=== PATIENT | male | born 1950 | race Caucasian/White ===

== ENCOUNTER 2018-12-29 19:05 | Emergency (ER) | payer OTHER, SELFPAY ==
[2018-12-29 19:05] VITALS: BP 176/113; PULSE 72; RESP 18; TEMP 36.4; O2SAT 99
--- NOTE | 2018-12-29 19:15 | ED.GENADULT ---
HPI - General Adult General Chief complaint: Arrhythmia/Palpitations Stated complaint: states in AFIB, not getting better Time Seen by Provider: 12/29/18 19:15 Source: patient Mode of arrival: ambulatory Limitations: no limitations History of Present Illness HPI narrative: Patient is a 68-year-old male sent to the emergency department by his primary doctor for high blood pressure. Patient states that he recently saw a new primary provider. During his initial visit with that it was found that he was in atrial fibrillation. Was also noted that he was hypertensive. He was started on 5 mg of lisinopril. Approximately 10 days ago he had an echocardiogram. I do not have the results of this although he was told that he was in atrial fibrillation. He denies any chest pain or palpitations or lightheadedness or headache or vision changes. He was not started on any anticoagulation. Last Thursday his lisinopril was increased to 15 mg. He has been taking his blood pressure since then hand on general and has been in the 150s in 160s systolic. He called his primary doctor today who told him to come to the emergency department. He is an appointment scheduled for Cardiology next month. Related Data Home Medications Medication Instructions Recorded Confirmed aspirin 325 mg PO DAILY 12/29/18 12/29/18 hydrochlorothiazide 12/29/18 lisinopril 12/29/18 Previous Rx's Medication Instructions Recorded lisinopril 30 mg PO DAILY #60 tab 12/29/18 rivaroxaban 20 mg PO QPM #30 tab 12/29/18 Allergies Allergy/AdvReac Type Severity Reaction Status Date / Time No Known Drug Allergies Allergy Verified 12/29/18 19:31 Review of Systems Constitutional Denies fever(s) and Denies headache(s) ENT Ears, Nose, Mouth, and Throat: Denies headache(s) Cardiovascular Denies chest pain, Denies chest pain at rest, Denies chest pain with activity, Denies diaphoresis, Denies syncope, Denies rapid heart rate, Denies edema, Denies irregular heart rhythm, Denies lightheadedness, Denies palpitations and Denies dyspnea Respiratory Denies cough and Denies dyspnea Gastrointestinal Gastrointestinal: Denies abdominal pain Genitourinary Denies dysuria Musculoskeletal Denies abnormal gait, Denies myalgias and Denies arthralgias Integumentary/Breasts Denies new lesions and Denies rash Neurologic Denies abnormal gait, Denies behavioral changes, Denies syncope and Denies headache(s) Psychiatric Denies behavioral changes Endocrine Denies palpitations Hematologic/Lymphatic Denies easy bleeding and Denies easy bruising Allergic/Immunologic Denies urticaria [facility] Medical History Atrial fibrillation (Acute) Hypertension (Acute) Social History Smoking Status: Never smoker Social History Smoking Status: Never smoker Exam Initial Vital Signs Initial Vital Signs: Vital Signs Temperature 97.6 F 12/29/18 19:05 Pulse Rate 72 12/29/18 19:05 Respiratory Rate 18 12/29/18 19:05 Blood Pressure 176/113 H 12/29/18 19:05 Pulse Oximetry 99 12/29/18 19:05 Const General: cooperative, comfortable, well developed, well groomed and No acute distress Orientation: alert, awake and oriented x3 HENMT Head: normal to inspection and normocephalic Resp Effort & Inspection: normal respiratory effort Auscultation: clear to auscultation bilaterally Cardio Rate: regular rate Rhythm: abnormal rhythm Pulses: radial pulses present GI Inspection: non-distended Palpation: soft, No firm and No tender Skin Lesions: no lesions Rashes: no rashes Neuro General: alert, awake and oriented x3 Cognition: normal cognition Speech: speech normal Motor: muscle tone normal throughout Sensory Exam: no sensory deficits noted Extrem General: normal to inspection and capillary refill normal Psych Appearance: grossly normal and well kempt Course Orders Ordered: ED Orders 12/29/18 19:17 XR chest 1V Stat EKG-12 Lead Stat 12/29/18 19:45 Complete Blood Count AUTO DIFF Stat Comprehensive Metabolic Panel Stat Lipase Stat Partial Thromboplastin Time Stat Prothrombin Time INR Stat Troponin & CK Cardiac Panel Stat Discontinued Medications Rivaroxaban (Xarelto) 20 mg PO NOW ONE Stop: 12/29/18 20:38 Last Admin: 12/29/18 20:41 Dose: 20 mg Vital Signs - 8 hr 12/29/18 19:05 12/29/18 19:43 12/29/18 20:33 Temperature 97.6 F Pulse Rate 72 93 H 82 Respiratory Rate 18 21 20 Blood Pressure 176/113 H Blood Pressure [Right Arm] 180/100 H 161/108 H Pulse Oximetry 99 97 98 12/29/18 20:57 Temperature Pulse Rate 79 Respiratory Rate 19 Blood Pressure 162/110 H Blood Pressure [Right Arm] Pulse Oximetry 98 Medical Decision Making Lab Data Lab results reviewed: Yes I reviewed the patient's lab results. Result diagrams: 12/29/18 19:45 12/29/18 19:45 Lab Results 12/29/18 12/29/18 12/29/18 Range/Units 19:45 19:45 19:45 WBC 8.1 (4.5-11.0) X10^3/uL RBC 5.00 (4.5-5.9) X10^6/uL Hgb 15.0 (13.5-17.5) g/dL Hct 43.5 (41-53) % MCV 87.0 (80-100) fL MCH 30.0 (26-34) PG MCHC 34.4 (30-36) % RDW 13.4 (11.6-14.8) % Plt Count 284 (150-400) X10^3/uL Neut % (Auto) 66.2 (50-75) % Lymph % (Auto) 22.2 L (25-40) % Burke % (Auto) 7.9 (3-14) % Eos % (Auto) 3.2 (2-4) % Baso % (Auto) 0.5 (0-2) % Neut # (Auto) 5400 (4910-4634) /uL Lymph # (Auto) 1800 (3238-8611) /uL Burke # (Auto) 600 (0-900) /uL Eos # (Auto) 300 (0-450) /uL Baso # (Auto) 0 (0-100) /uL PT 13.7 H (10.1-12.7) SECONDS INR 1.2 (0.9-1.3) APTT 37 H (26.4-36.2) SECONDS Sodium 139 (137-145) mmol/L Potassium 3.7 (3.4-5.1) mmol/L Chloride 100 (98-107) mmol/L Carbon Dioxide 26 (22-32) mmol/L BUN 21 H (9-20) mg/dL Creatinine 1.00 (0.66-1.25) mg/dL Estimated GFR > 60.0 (>60) mL/min BUN/Creatinine Ratio 21.0 (6-22) Glucose 264 H (80-110) mg/dL Calcium 9.4 (8.4-10.2) mg/dL Total Bilirubin 0.6 (0.2-1.3) mg/dL AST 56 (17-59) IU/L ALT 47 (21-72) IU/L Alkaline Phosphatase 49 (38-126) U/L Total Creatine Kinase 110 (55-170) U/L CK-MB (CK-2) 2.82 H (<2.37) ng/mL CK-MB (CK-2) Rel Index 2.6 (1.5-5.0) % Troponin I < 0.012 (0.01-0.034) ng/mL Total Protein 7.2 (6.3-8.2) g/dL Albumin 4.1 (3.5-5.0) g/dL Globulin 3.1 (1.7-4.1) g/dL Albumin/Globulin Ratio 1.3 (1.0-2.8) Lipase 152 (23-300) U/L Imaging Data Chest x-ray: Radiologist's impression: [address] [address] XRay Report Signed Patient: Nitza Olsen BMR#: [id number] : 2Acct:[id number] Age/Sex: 68 / MDate of Service: 12/29/18 Loc: ED Accession Number: [id number] Procedure: XR chest 1V Ordering Provider: Harry Kauffman D.O. PROCEDURE: XR CHEST 1V INDICATIONS: chest pain TECHNIQUE: One view of the chest was acquired. COMPARISON: None. FINDINGS: Surgical changes and devices: None. Lungs and pleura: Retrocardiac opacity. No pleural effusions or pneumothorax. Mediastinum: Mediastinal contours appear normal. Heart size is normal. Bones and chest wall: No suspicious bony lesions. Overlying soft tissues appear unremarkable. IMPRESSION: Retrocardiac opacity suggestive of aspiration/atelectasis versus pneumonia. Recommend followup after treatment to document resolution and exclude underlying pulmonary nodule. Dictated by: Jeremías Lyman M.D. on 12/29/2018 at 20:07 Approved by: Jeremías Lyman M.D. on 12/29/2018 at 20:08 ECG Data Attestation: I personally reviewed and interpreted this ECG as follows: Prior ECG tracings: not available for review Interpretation: Atrial fibrillation Ventricular rate is 76 Normal axis Normal QRS Normal QTC Nonspecific ST T wave changes MDM Narrative Medical decision making narrative: Patient is hypertensive here in the emergency department however has no signs of end-organ dysfunction from this. He is asymptomatic. Low suspicion for ACS. Low suspicion for PE or TAD or ICH. He is in AFib and is rate controlled. He does have a low ABCD2 score however I suspect that he has been in atrial fibrillation at least for the past 10 days if not longer. He does not meet criteria for cardioversion here in the emergency department. Does not meet criteria to be admitted since his rate is controlled. I do suspect that there is a high possibility that he will need cardioversion in the future. Since he does not have a cardiology appointment for the next several weeks and because of the high likelihood of a recommendation for cardioversion will start him on anticoagulation today. He was given his 1st dose here in the emergency department. He is hypertensive and has been for the past week despite the increase in his lisinopril. We will increase his lisinopril more. Informed him that he needed to continue to take his blood pressure at home and to take those numbers to his primary doctor to discuss further workup and treatment of this. We discussed return precautions and follow-up instructions. Informed him that he should talk with his primary doctor about the x-ray today. Patient expressed understanding and agreement with plan. Discharge Plan Departure Patient Disposition: Home Clinical Impression: Atrial fibrillation Qualifiers: Atrial fibrillation type: unspecified Qualified Code(s): I48.91 - Unspecified atrial fibrillation Hypertension Qualifiers: Hypertension type: unspecified Qualified Code(s): I10 - Essential (primary) hypertension Discharge Date/Time: 12/29/18 20:59 Interventions: ED Discharge Assessment Last Done: 12/29/18 20:57 Instructions: Treatments for High Blood Pressure: More Than Just Taking a Pill, DI for Atrial Fibrillation Activity Restrictions/Additional Instructions: I recommend that you start taking the anti coagulant for the atrial fibrillation like we discussed. I do recommend that you talk with your primary doctor to discuss the indications for a Holter monitor prior to your cardiology visit. I also recommend that you increase your lisinopril to 30 mg a day. Continue to take your blood pressure at home. Return to the emergency department for any new or worsening symptoms Prescriptions: New lisinopril 20 mg tablet 30 mg PO DAILY Qty: 60 RF: 0 rivaroxaban 20 mg tablet 20 mg PO QPM Qty: 30 RF: 0 No Action hydrochlorothiazide RF: 0 lisinopril RF: 0 aspirin 325 mg Tablet 325 mg PO DAILY RF: 0
--- NOTE | 2018-12-29 19:42 | PC.NURSE ---
seen at doctor 1.5 weeks ago. Told he was in Afib and had hypertension. Pt states today he was monitoring at home and his and doctor made him come in. States he has no symptoms associated with this but does not have a patient registration clerk appt until 01/19.
[2018-12-29 19:43] VITALS: BP 180/100; PULSE 93; RESP 21; O2SAT 97
[2018-12-29 19:54] LABS: Add Manual Diff / Slide Review NO; Basophils Absolute Auto 0 /uL (0-100); Basophils Percent Auto 0.5 % (0-2); Eosinophils Absolute Auto 300 /uL (0-450); Eosinophils Percent Auto 3.2 % (2-4); Hematocrit 43.5 % (41-53); Lymphocytes Absolute Auto 1800 /uL (1100-4500); Lymphocytes Percent Auto 22.2 % (25-40); Mean Corpuscular HGB Conc 34.4 % (30-36); Monocytes Absolute Auto 600 /uL (0-900); Monocytes Percent Auto 7.9 % (3-14); Neutrophils Absolute Auto 5400 /uL (1500-7000); Neutrophils Percent Auto 66.2 % (50-75); Platelet Count 284 X10^3/uL (150-400); Red Cell Distribution Width 13.4 % (11.6-14.8); White Blood Cell Count 8.1 X10^3/uL (4.5-11.0)
[2018-12-29 20:00] LABS: INR 1.2 (0.9-1.3); Prothrombin Time 13.7 SECONDS (10.1-12.7)
[2018-12-29 20:03] LABS: PTT Partial Thromboplastin Tim 37 SECONDS (26.4-36.2)
[2018-12-29 20:15] LABS: Alanine Aminotransferase 47 IU/L (21-72); Albumin 4.1 g/dL (3.5-5.0); Albumin Globulin Ratio 1.3 (1.0-2.8); Alkaline Phosphatase 49 U/L (38-126); Aspartate Aminotransferase 56 IU/L (17-59); Bilirubin Total 0.6 mg/dL (0.2-1.3); Blood Urea Nitrogen 21 mg/dL (9-20); Calcium 9.4 mg/dL (8.4-10.2); Carbon Dioxide 26 mmol/L (22-32); Chloride 100 mmol/L (98-107); Creatine Kinase 110 U/L (55-170); Estimated Glomerular Filt Rate > 60.0 mL/min (>60); Globulin 3.1 g/dL (1.7-4.1); Glucose 264 mg/dL (80-110); HEMOLYSIS 21 (0-50); Lipase 152 U/L (23-300); Potassium 3.7 mmol/L (3.4-5.1); Sodium 139 mmol/L (137-145); Total Protein 7.2 g/dL (6.3-8.2)
[2018-12-29 20:27] LABS: Troponin I < 0.012 ng/mL (0.01-0.034)
[2018-12-29 20:30] LABS: CKMB % Relative Index 2.6 % (1.5-5.0); Creatine Kinase MB 2.82 ng/mL (<2.37)
[2018-12-29 20:33] VITALS: BP 161/108; PULSE 82; RESP 20; O2SAT 98
[2018-12-29] MEDS: RIVAROXABAN 10 MG TABLET 20 MG PO (20:41)
[2018-12-29 20:57] VITALS: BP 162/110; PULSE 79; RESP 19; O2SAT 98
== END 2018-12-29 20:59 | disposition home or self-care (01) ==
PROVIDERS: Emergency Provider Emergency Medicine
DX: I48.91 Unspecified atrial fibrillation (principal); I10 Essential (primary) hypertension
CPT/HCPCS: 36415; 71045; 80053; 82550; 82553; 83690; 84484; 85025; 85610; 85730; 93005; 99283; 99285

== ENCOUNTER 2024-10-13 14:57 | Emergency (ER) | payer OTHER, SELFPAY ==
[2024-10-13 15:13] VITALS: BP 179/119; PULSE 71; RESP 16; TEMP 36.4; O2SAT 96; BMI 32.8
[2024-10-13 15:53] LABS: Add Manual Diff / Slide Review NO; Alanine Aminotransferase 33 IU/L (<50); Albumin 4.3 g/dL (3.5-5.0); Albumin Globulin Ratio 1.3 (1.0-2.8); Alkaline Phosphatase 65 U/L (38-126); Aspartate Aminotransferase 26 IU/L (17-59); BUN Creatinine Ratio 23.2 (6-22); Basophils Absolute Auto 0 /uL (0-100); Basophils Percent Auto 0.2 % (0-2); Bilirubin Total 0.9 mg/dL (0.2-1.3); Blood Urea Nitrogen 22 mg/dL (9-20); Calcium 9.3 mg/dL (8.4-10.2); Carbon Dioxide 22 mmol/L (22-32); Chloride 105 mmol/L (98-107); Eosinophils Absolute Auto 0 /uL (0-450); Eosinophils Percent Auto 0.2 % (2-4); Estimated Glomerular Filt Rate > 60 mL/min (>60); Globulin 3.2 g/dL (1.7-4.1); Glucose 242 mg/dL (70-99); HEMOLYSIS < 15 (0-50); Hematocrit 44.7 % (41-53); Hemoglobin 15.4 g/dL (13.5-17.5); Lipase 45 U/L (23-300); Lymphocytes Absolute Auto 700 /uL (1100-4500); Lymphocytes Percent Auto 6.6 % (25-40); Mean Corpuscular HGB Conc 34.4 % (30-36); Mean Corpuscular Hemoglobin 30.1 PG (26-34); Mean Corpuscular Volume 87.4 fL (80-100); Monocytes Absolute Auto 400 /uL (0-900); Neutrophils Absolute Auto 9600 /uL (1500-7000); Platelet Count 269 X10^3/uL (150-400); Potassium 4.3 mmol/L (3.4-5.1); Red Blood Cell Count 5.11 X10^6/uL (4.5-5.9); Red Cell Distribution Width 13.8 % (11.6-14.8); Sodium 137 mmol/L (137-145); Total Protein 7.5 g/dL (6.3-8.2); White Blood Cell Count 10.8 X10^3/uL (4.5-11.0)
--- NOTE | 2024-10-13 16:34 | ED.ABDPAIN ---
HPI - Abdominal Pain General Chief Complaint: Abdominal Pain Stated Complaint: stomach pain sent by walk in Time Seen by Provider: 10/13/24 16:21 Source: patient Mode of arrival: Ambulatory History of Present Illness HPI narrative: Patient here with daughter. Here for sudden onset right lower quadrant pain this morning after breakfast time. Had nausea/vomiting in the bathroom. Feeling better now. Pain has been waxing and waning right lower quadrant. Denies any previous abdominal surgical history. Has had urinary urgency through the day but no hematuria. Patient is on blood thinners for AFib. Has any chest pain or shortness of breath. No back pain. No syncope. No prior history of aortic aneurysm or dissection. Related Data Home Medications ?Medication ?Instructions ?Recorded ?Confirmed aspirin 325 mg tablet 325 mg PO DAILY 12/29/18 12/29/18 hydrochlorothiazide 12/29/18 lisinopril 12/29/18 Previous Rx's ?Medication ?Instructions ?Recorded lisinopril 20 mg tablet 30 mg (1.5 x 20 mg) PO DAILY #60 12/29/18 tabs rivaroxaban 20 mg tablet 20 mg PO QPM #30 tabs 12/29/18 hydrocodone 5 mg-acetaminophen 325 1 tab PO Q6H PRN pain #20 tabs 10/13/24 mg tablet ondansetron 4 mg disintegrating 4 mg PO Q6H PRN nausea and 10/13/24 tablet vomiting #20 tabs tamsulosin 0.4 mg capsule 0.4 mg PO DAILY #7 caps 10/13/24 Allergies Allergy/AdvReac Type Severity Reaction Status Date / Time No Known Drug Allergies Allergy Verified 12/29/18 19:31 Review of Systems Review of Systems Narrative: GENERAL: Negative chills, fatigue, malaise, fever, sweats. HEENT: Negative sinus pain, ear pain, sore throat RESPIRATORY: Negative dyspnea, cough CARDIOVASCULAR: Negative chest pain, palpitations GASTROINTESTINAL: Positive vomiting, nausea, abdominal pain : Negative dysuria, frequency, hematuria, positive urgency MUSCULOSKELETAL: Negative muscle or bony pain SKIN: Negative rash, skin lesions NEUROLOGIC: Negative weakness, numbness ROS Unobtainable: All systems reviewed & are unremarkable except as noted in HPI and below Patient History Medical History (Updated 10/13/24 @ 17:37 by Javier Valenzuela MD) Hypertension Atrial fibrillation Social History (Reviewed 12/29/18 @ 23:33 by YAKELIN Menjivar Smoking Status: Never smoker Smoking Status: Never smoker alcohol intake frequency: a few times a month Exam Narrative Exam Narrative: GENERAL: in no distress, not toxic not dyspneic HEAD: Normocephalic. EYES: Pupils equal round ENT: Mucous membranes moist. NECK: Trachea midline. CARDIOVASCULAR: Regular rate and rhythm RESPIRATORY: Clear to auscultation. Breath sounds equal bilaterally. No wheezes, rales, or rhonchi. GASTROINTESTINAL: Abdomen soft, non-tender, mild right lower quadrant tenderness. No McBurney point tenderness. No CVA tenderness. No peritoneal signs no guarding or rebound. No pain out of portion exam. Bowel sounds are present. No CVA tenderness EXTREMITIES: No gross deformities. BACK: No flank tenderness. NEURO: AOx4. Clear speech SKIN: Warm and dry PSYCH: Not anxious, is cooperative Initial Vital Signs Initial Vital Signs: Vital Signs Temperature 97.5 F L 10/13/24 15:13 Pulse Rate 71 10/13/24 15:13 Respiratory Rate 16 10/13/24 15:13 Blood Pressure 179/119 H 10/13/24 15:13 Pulse Oximetry 96 10/13/24 15:13 Oxygen Delivery Method Room Air 10/13/24 15:13 Course Orders Ordered: Discontinued Medications Sodium Chloride (Normal Saline 0.9%) 1,000 mls @ 1,000 mls/hr IV BOLUS ONE Stop: 10/13/24 17:33 Last Infusion: 10/13/24 17:48 Dose: Infused Documented By: Admin: 10/13/24 16:47 Dose: 1,000 mls/hr Documented By: WAYNE Ketorolac Tromethamine (Ketorolac 30 Mg/Ml Vial) 15 mg IV NOW ONE Stop: 10/13/24 16:35 Last Admin: 10/13/24 16:46 Dose: 15 mg Documented By: WAYNE Ondansetron HCl (Ondansetron 4 Mg/2 Ml Inj) 4 mg IV NOW PRN PRN Reason: Nausea And Vomiting Last Admin: 10/13/24 16:47 Dose: 4 mg Documented By: WAYNE Ondansetron HCl (Ondansetron 4 Mg Odt) 4 mg PO NOW PRN PRN Reason: Nausea And Vomiting Tamsulosin HCl (Tamsulosin 0.4 Mg Capsule) 0.4 mg PO NOW ONE Stop: 10/13/24 17:37 Last Admin: 10/13/24 17:45 Dose: 0.4 mg Documented By: WAYNE Vital Signs Vital signs: Vital Signs - 8 hr 10/13/24 15:13 10/13/24 17:25 Temperature 97.5 F L Pulse Rate 71 85 Respiratory Rate 16 20 Blood Pressure 179/119 H 157/96 H Pulse Oximetry 96 95 Oxygen Delivery Method Room Air Room Air MDM - Abdominal Pain Lab Data 10/13/24 15:28 10/13/24 15:28 Labs: Lab Results 10/13/24 10/13/24 Range/Units 15:28 16:53 WBC 10.8 (4.5-11.0) X10^3/uL RBC 5.11 (4.5-5.9) X10^6/uL Hgb 15.4 (13.5-17.5) g/dL Hct 44.7 (41-53) % MCV 87.4 (80-100) fL MCH 30.1 (26-34) PG MCHC 34.4 (30-36) % RDW 13.8 (11.6-14.8) % Plt Count 269 (150-400) X10^3/uL Neut % (Auto) 89.0 H (50-75) % Lymph % (Auto) 6.6 L (25-40) % [place] % (Auto) 4.0 (3-14) % Eos % (Auto) 0.2 L (2-4) % Baso % (Auto) 0.2 (0-2) % Neut # (Auto) 9600 H (0948-6273) /uL Lymph # (Auto) 700 L (5978-3377) /uL [place] # (Auto) 400 (0-900) /uL Eos # (Auto) 0 (0-450) /uL Baso # (Auto) 0 (0-100) /uL Sodium 137 (137-145) mmol/L Potassium 4.3 (3.4-5.1) mmol/L Chloride 105 (98-107) mmol/L Carbon Dioxide 22 (22-32) mmol/L BUN 22 H (9-20) mg/dL Creatinine 0.95 (0.66-1.25) mg/dL Estimated GFR > 60 (>60) mL/min BUN/Creatinine Ratio 23.2 H (6-22) Glucose 242 H (70-99) mg/dL Calcium 9.3 (8.4-10.2) mg/dL Total Bilirubin 0.9 (0.2-1.3) mg/dL AST 26 (17-59) IU/L ALT 33 (<50) IU/L Alkaline Phosphatase 65 (38-126) U/L Total Protein 7.5 (6.3-8.2) g/dL Albumin 4.3 (3.5-5.0) g/dL Globulin 3.2 (1.7-4.1) g/dL Albumin/Globulin Ratio 1.3 (1.0-2.8) Lipase 45 (23-300) U/L Urine RBC 30-100/hpf H (0-5/HPF) Urine WBC 0-1/hpf (0-5/HPF) Ur Squamous Epith Cells 0-1 /hpf (0-5/HPF) Urine Bacteria None seen (None) Hyaline Casts 0-1/lpf (None) Ur Culture Indicated? Cult not indicated Vol Urine Centrifuged 10ml (spun) Point of care testing: Urine Dip Bedside Urine Glucose 250 mg/dl Bedside Urine Bilirubin - Negative Bedside Urine Ketone +/- 5 Urine Specific [place] 1.020 Bedside Urine Occult Blood +++ Bedside Urine pH 6.0 Bedside Urine Protein +/- 15 Bedside Urine Urobilinogen - Negative Bedside Urine Nitrite - Negative Bedside Urine Leukocytes - Negative Esterase Imaging Data CT scan - abdomen/pelvis: Radiologist's Impression: [place] [id number] CT Scan Report Signed Patient: Nitza Olsen MR#: [id number] : 1950 Acct:[id number] Age/Sex: 74 / M Date of Service: 10/13/24 Loc: ED Accession Number: [id number] Procedure: CT kidney ureter bladder (KUB) Ordering Provider: Javier Valenzuela MD PROCEDURE: CT KIDNEY URETER BLADDER (KUB) INDICATIONS: Right flank pain TECHNIQUE: After the administration of oral contrast, 5 mm thick sections acquired from the diaphragms to the symphysis. 5 mm coronal and sagittal reformats were performed. For radiation dose reduction, the following was used: automated exposure control, adjustment of mA and/or kV according to patient size. COMPARISON: None. FINDINGS: Image quality: Diagnostic. Lower Chest: There is a 7 mm solid lung nodule in the left lower lobe posteriorly. ABDOMEN: Liver: No contour-deforming mass. Gallbladder: Several calculi in the gallbladder. No inflammatory changes peak Biliary ducts: No biliary dilation. Pancreas: No ductal dilation. Spleen: Size is within normal limits. Adrenal Glands: There is a 2.4 cm right adrenal nodule, attenuation values of 16 Hounsfield units.. Kidneys and Ureters: There is mild right hydronephrosis and right hydroureter. There is a 2 mm stone in the very distal portion of the right ureter, at 5 mm from the UVJ. Stomach and Bowel: Normal colonic caliber, without significant wall thickening. The appendix is normal Peritoneum: No abnormal intraperitoneal fluid. No free air. Ventral Wall: No significant hernia. Abdominal Nodes: No retroperitoneal or mesenteric adenopathy by size criteria. Vessels: Aorta and inferior vena cava are normal in size. PELVIS: Pelvic Organs: Unremarkable. Bladder: Unremarkable. Pelvic Nodes: No enlarged lymph nodes. Miscellaneous: No inguinal hernias are seen. Bones: No aggressive osseous abnormality. IMPRESSION: 1. There is a 2 mm stone in the very distal portion of the right ureter, with mild right hydronephrosis. 2. Cholelithiasis. 3. A 2.4 cm right adrenal nodule, statistically most likely adenoma, can be confirmed with MRI if there is a clinical possibility of malignancy. 4. A 7 mm solid lung nodule in the left lower lobe, can be reassessed with chest CT in 6 months. Dictated by: Graham Alcantara M.D. on 10/13/2024 at 17:20 Approved by: Graham Alcantara M.D. on 10/13/2024 at 17:26 [facility] Narrative Medical decision making narrative: Patient here with daughter. Here for sudden onset right lower quadrant pain this morning after breakfast time. Had nausea/vomiting in the bathroom. Feeling better now. Pain has been waxing and waning right lower quadrant. Denies any previous abdominal surgical history. Has had urinary urgency through the day but no hematuria. Patient is on blood thinners for AFib. Has any chest pain or shortness of breath. No back pain. No syncope. No prior history of aortic aneurysm or dissection. After history and exam, CBC CMP urinalysis Toradol Zofran normal saline CT KUB [facility] Medical records reviewed: No recent visit for this complaint Differential considered: Includes but not limited to does not UTI pyelonephritis Lab Test results independently reviewed as above. Pertinent findings: WBC 10.8 hemoglobin 15.4 sodium 137 potassium 4.3 BUN 22 creatinine 0.9 AST 26 ALT 33 lipase 45 urine negative bacteria positive RBCs Independently reviewed EKG none indicated this time. Has right lower quadrant pain Imaging studies independently reviewed: CT KUB 2 mm right ureteral stone cholelithiasis right adrenal nodule left lower lobe lung nodule Consultations: None indicated at this time. Re-evaluations: 5:42 p.m. the patient is pain-free. Return precautions reviewed. Reviewed with him the incidental findings on CT images and will need outpatient MRI and CT scans through family doctor. He does have a primary care doctor marty. Return precautions reviewed. They desire discharge home. Discussion: Appropriate for discharge home. Exam is reassuring. Pain is controlled at time of discharge. Return precautions reviewed. Reviewed with patient and daughter incidental findings on CT imaging will need outpatient MRI and CT imaging with your family doctor. He does have a primary care, Dr. Holbrook. Diagnosis: Ureteral stone Discharge Plan Departure Patient Disposition: Home Clinical Impression: Right ureteral stone Instructions: DI for Kidney Stones Activity Restrictions/Additional Instructions: Please call provided urology office tomorrow for follow up regarding your kidney stone. Please see your family doctor regarding incidental findings on your CT scan today you will need outpatient MRI studies ordered by your family doctor. No driving operating machinery when taking prescribed pain medication. Return if worse if any questions or concerns. Keep well hydrated. Prescriptions: New hydrocodone-acetaminophen 5-325 mg tablet 1 tab PO Q6H PRN (Reason: pain) Qty: 20 0RF tamsulosin 0.4 mg capsule 0.4 mg PO DAILY Qty: 7 0RF ondansetron 4 mg tablet,disintegrating 4 mg PO Q6H PRN (Reason: nausea and vomiting) Qty: 20 0RF No Action hydrochlorothiazide lisinopril Rx Instructions: states he takes 15mg a day aspirin 325 mg Tablet 325 mg PO DAILY lisinopril 20 mg tablet 30 mg PO DAILY Qty: 60 0RF rivaroxaban 20 mg tablet 20 mg PO QPM Qty: 30 0RF Rx Instructions: must administer with evening meal Referrals: Luis Appiah DO [Physician, Urology] Stand Alone Forms: Patient Portal/API
[2024-10-13] MEDS: KETOROLAC 30 MG/ML VIAL 15 MG IV (16:46)
[2024-10-13] MEDS: ONDANSETRON 4 MG/2 ML INJ IV (16:47)
[2024-10-13] MEDS: SODIUM CHLORIDE 0.9% 1,000 ML 1000 ML IV (16:47)
[2024-10-13 17:14] LABS: Bacteria Urine None Seen; Hyaline Casts Urine 0-1/LPF; RBC Urine 30-100/HPF (0-5/HPF); Squamous Epithelial Cell Urine 0-1 /HPF (0-5/HPF); Urine Volume 10mL (spun); WBC Urine 0-1/HPF (0-5/HPF)
[2024-10-13 17:15] LABS: Culture Indicated Urine Cult Not Indicated
[2024-10-13 17:25] VITALS: BP 157/96; PULSE 85; RESP 20; O2SAT 95
[2024-10-13] MEDS: TAMSULOSIN 0.4 MG CAPSULE PO (17:45)
[2024-10-13 17:53] VITALS: BP 162/89; PULSE 80; RESP 20; O2SAT 96
== END 2024-10-13 17:55 | disposition home or self-care (01) ==
PROVIDERS: Emergency Provider Emergency Medicine
DX: N20.1 Calculus of ureter (principal); R11.2 Nausea with vomiting, unspecified; Z79.01 Long term (current) use of anticoagulants
CPT/HCPCS: 36415; 74176; 80053; 81003; 81015; 83690; 85025; 87086; 96361; 96374; 96375; 99284; J1885; J2405